=== PATIENT | male | born 1960 | race Caucasian/White ===

== ENCOUNTER 2021-02-16 14:08 | Emergency (ER) | payer OTHER, SELFPAY ==
[2021-02-16 14:17] VITALS: BP 148/91; PULSE 77; RESP 16; TEMP 36.6; O2SAT 98
--- NOTE | 2021-02-16 14:37 | ED.WOUNDLAC ---
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 Patient states that the reason he came was that they couldn't get bleeding stopped to the middle finger and wanted just some of that skin glue applied to wounds. Laceration to middle finger tip at fat pad region viewed 1.5cm flap type of wound with some avulsion of skin noted with some active bleeding once pressure dressing removed. Laceration to 2nd distal finger at fat pad note bleeding controlled with 0.5cm linear noted.Patient unsure when last Tetanus but refuses update of Tetanus. Place: home Patient tetanus UTD: No (refuses update of tetanus) Context: accidental Associated symptoms: none Treatments prior to arrival: bandage (pressure) Related Data Home Medications Medication Instructions Recorded Confirmed amlodipine 10 mg PO DAILY 02/16/21 02/16/21 atorvastatin 10 mg PO DAILY 02/16/21 02/16/21 hydrochlorothiazide 25 mg PO DAILY 02/16/21 02/16/21 metformin 500 mg PO DAILY 02/16/21 02/16/21 omeprazole 20 mg PO DAILY 02/16/21 02/16/21 Allergies Allergy/AdvReac Type Severity Reaction Status Date / Time No Known Allergies Allergy Verified 02/16/21 14:34 Review of Systems Review of Systems: Narrative: CONSTITUTIONAL: Denies fever, chills, or sweats. EYES: Denies visual changes, redness, or discharge. ENT: Denies rhinorrhea, congestion, sore throat, or otalgia. CARDIOVASCULAR: Denies chest pain, palpitations, or edema. RESPIRATORY: Denies cough or dyspnea. GASTROINTESTINAL: Denies abdominal pain, nausea, vomiting, or diarrhea. GENITOURINARY: Denies dysuria or hematuria. SKIN: Positive for lacerations to 2nd and 3rd finger tips on rasheed aspect of fingers MUSCULOSKELETAL: Denies back pain, joint pain, or myalgia. NEUROLOGIC: Denies headache, numbness, or weakness. PSYCHIATRIC: Denies anxiety or depression. All systems reviewed & are unremarkable except as noted in HPI and below PMFSH Past Medical History Medical History (Updated 02/17/21 @ 00:01 by Chanel Hazel) Diabetes Elevated cholesterol GERD (gastroesophageal reflux disease) Hypertension Surgical History Surgical History (Updated 02/16/21 @ 14:41 by Julieth Bonner NP) Previous back surgery Family History Family History (Updated 02/19/21 @ 09:29 by Julieth Bonner NP) Other No significant family history Social History Social History (Updated 02/19/21 @ 09:29 by Julieth Bonner NP) Smoking status: Unknown if ever smoked Alcohol intake: current Alcohol use details: rare Substance use: never Living arrangements: with family Gender identity (if verbalized by the patient): Male Comments At time of signature, agree with nursing past medical, surgical, social and family history. There is no relevant family history pertinent to the presenting complaint Exam Narrative: Exam Narrative: GENERAL: Well-appearing, well-nourished, and in no acute distress. HEAD: Normocephalic, atraumatic. EYES: PERRLA and EOMI. ENT: Nares clear, no rhinorrhea or epistaxis. Mucous membranes moist. NECK: Supple.no lymphadenopathy noted CHEST: Clear to auscultation. No respiratory distress.SAO2 HEART: Regular rate and rhythm. No murmur heard. Normal peripheral pulses. ABDOMEN: Soft, nontender, nondistended, normal active bowel sounds. EXTREMITIES: Normal range of motion. No edema. SKIN: Warm, dry, 0.5cm linear laceration to distal rasheed aspect of 2nd finger with bleeding controlled, 3rd finger left hand has 1.5cm flap type of wound with some avulsion of skin at wound noted with some active bleeding note
== END 2021-02-16 15:18 | disposition home or self-care (01) ==
PROVIDERS: Emergency Provider Registered Nurse; PCP Internal Medicine
DX: S61.211A Laceration without foreign body of left index finger without damage to nail, initial encounter (principal); S61.213A Laceration without foreign body of left middle finger without damage to nail, initial encounter; W29.3XXA Contact with powered garden and outdoor hand tools and machinery, initial encounter; E11.9 Type 2 diabetes mellitus without complications; E78.00 Pure hypercholesterolemia, unspecified; K21.9 Gastro-esophageal reflux disease without esophagitis; I10 Essential (primary) hypertension
CPT/HCPCS: 12001; 99213; G0463

== ENCOUNTER 2022-04-19 13:46 | Emergency (ER) | payer BC, SELFPAY ==
[2022-04-19 13:52] VITALS: BP 137/82; PULSE 72; RESP 16; TEMP 36.9; O2SAT 99
--- NOTE | 2022-04-19 14:41 | ED.GENADULT ---
HPI - General Adult General Chief complaint: Wound/Laceration Stated complaint: Laceration to Finger Source: patient Mode of arrival: ambulatory Limitations: no limitations History of Present Illness HPI narrative: Patient presents for evaluation of laceration to the second digit of the left hand. He indicates he was cutting a melon just [employer] when the knife slipped, causing him to cut his finger in the process. Significant pain in the digit. No paresthesias. He is right-hand dominant. He states that he was previously diabetic but his A1c has since normalized. Last tetanus approximately 1 year ago. No loss of range of motion. He states that the soft tissue at the tip of his finger is not adhered. He stuck in back into place before coming in here for further evaluation. Related Data Home Medications Medication Instructions Recorded Confirmed amlodipine 10 mg tablet 10 mg PO DAILY 02/16/21 04/19/22 atorvastatin 10 mg tablet 10 mg PO DAILY 02/16/21 04/19/22 hydrochlorothiazide 25 mg tablet 25 mg PO DAILY 02/16/21 04/19/22 omeprazole 20 mg tablet,delayed 20 mg PO DAILY 02/16/21 04/19/22 release Allergies Allergy/AdvReac Type Severity Reaction Status Date / Time No Known Allergies Allergy Verified 04/19/22 14:03 Review of Systems Review of Systems: CONSTITUTIONAL: Denies fever, chills, or sweats. EYES: Denies visual changes, redness, or discharge. ENT: Denies rhinorrhea, congestion, sore throat, or otalgia. CARDIOVASCULAR: Denies chest pain, palpitations, or edema. RESPIRATORY: Denies cough or dyspnea. GASTROINTESTINAL: Denies abdominal pain, nausea, vomiting, or diarrhea. GENITOURINARY: Denies dysuria or hematuria. SKIN: Reports laceration to the tip of the left index finger. Denies rash or itching. MUSCULOSKELETAL: Reports pain in the left index finger. NEUROLOGIC: Denies headache, numbness, dizziness, or weakness. PSYCHIATRIC: Denies anxiety or depression. [facility] Past Medical History Medical History Elevated cholesterol GERD (gastroesophageal reflux disease) Hypertension Surgical History Surgical History Previous back surgery Family History Family History Other No significant family history Social History Social History Smoking status: Former smoker Alcohol intake: current Alcohol use details: rare Substance use: never Living arrangements: with family Gender identity (if verbalized by the patient): Male Sexual Orientation (if Verbalized by the Patient): Straight or Heterosexual Spiritual care concerns: No Exam Narrative: GENERAL: Well-appearing, well-nourished, and in no acute distress. HEAD: Normocephalic, atraumatic. EYES: PERRLA and EOMI. ENT: Nares clear, no rhinorrhea or epistaxis. Mucous membranes moist. Oropharynx without tonsillar hypertrophy exudate or other lesions. Bilateral TMs pearly chen nonbulging NECK: Supple. No adenopathy or masses. No carotid bruits or JVD CHEST: Clear to auscultation. No respiratory distress. No wheezes rales or rhonchi HEART: Regular rate and rhythm. No murmur heard. Normal peripheral pulses. ABDOMEN: Soft, nontender, nondistended, normal active bowel sounds. EXTREMITIES: Normal range of motion. No edema. SKIN: There is a laceration to the distal phalanx of the left index finger that is in a flap formation but is not adhered to surrounding tissue. There is active bleeding from laceration site. Skin is warm, dry, no rash. NEURO: No focal deficits. Alert and oriented x3. PSYCH: Normal mood and affect. Course Course Emergency Course: This is a 61-year-old male that presented for evaluation of a laceration to the left index finger. On physical exam macerated tissue was not adhered to surrounding sk
== END 2022-04-19 15:10 | disposition home or self-care (01) ==
PROVIDERS: Emergency Provider Nurse Practitioner; PCP Internal Medicine
DX: S61.211A Laceration without foreign body of left index finger without damage to nail, initial encounter (principal); W26.0XXA Contact with knife, initial encounter; Z87.891 Personal history of nicotine dependence; E78.00 Pure hypercholesterolemia, unspecified; K21.9 Gastro-esophageal reflux disease without esophagitis; I10 Essential (primary) hypertension
CPT/HCPCS: 12001; 99213; G0463